=== PATIENT | male | born 2000 | race Caucasian/White ===

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

== ENCOUNTER 2021-08-15 15:03 | Outpatient (CLI) | payer MEDICAID, SELFPAY ==
[2021-08-15 16:39] LABS: Basophils # 0.1 10^3/uL (0.0-0.1); Basophils % 0.3 %; Eosinophils # 0.1 10^3/uL (0.0-0.8); Eosinophils % 0.9 %; Hematocrit 47.6 % (42.0-52.0); Hemoglobin 15.8 g/dL (11.7-16.6); Lymphocytes # 2.1 10^3/uL (1.5-6.5); Lymphocytes % 14.4 %; Mean Corpuscular HGB Conc 33.2 g/dL (30.0-36.0); Mean Corpuscular Hemoglobin 29.5 pg (28.0-34.0); Mean Corpuscular Volume 88.8 fl (80-94); Mean Platelet Volume 9.8 fL (7.4-10.4); Monocytes # 0.9 10^3/uL (0.2-0.9); Neutrophils # 11.64 10^3/uL (1.8-8.0); Neutrophils % 78.1 %; Nucleated Red Blood Cells % 0 %; Platelet Count 314 10^3/cmm (130-400); Red Blood Count 5.36 10^6/uL (4.1-5.3); Red Cell Distribution Width 13.2 % (12.1-15.1); White Blood Count 14.9 10^3/uL (4.5-13.0)
[2021-08-15 17:15] LABS: Alanine Aminotransferase 7 U/L (0-41); Albumin Level 4.9 g/dL (3.5-5.2); Alkaline Phosphatase 141 IU/L (40-130); Anion Gap 17.5 (5-19); Aspartate Amino Transferase 16 U/L (0-40); Blood Urea Nitrogen 8 mg/dL (6-20); Carbon Dioxide 24 mmol/L (22-29); Chloride 101 mmol/L (98-107); Free T4 Free Thyroxine 1.21 ng/dL (0.82-1.77); Globulin 3.9 g/dL (1.3-4.6); Glomerular Filtration Rate 123.2 mL/min (90-130); Glucose 87 mg/dL (65-115); Osmolality Calculated 286 mOsm/kg (285-295); Potassium 3.5 mmol/L (3.5-5.1); Sodium 139 mmol/L (136-145); Thyroid Stimulating Hormone 1.29 uIU/mL (0.27-4.20); Total Bilirubin 0.9 mg/dL (0.15-1.2); Total Protein 8.8 g/dL (6.6-8.7)
[2021-08-15 17:19] LABS: Folate Level 11.2 ng/mL (4.5-32.2)
[2021-08-15 18:02] LABS: Ferritin 74 ng/mL (30-400); Iron 60 ug/dL (59-158); Percent Saturation 14.1 % (20-50); Total Iron Binding Capacity 424 mcg/dl; Unsaturated Iron Binding 364 ug/dL (112-347)
[2021-08-15 18:12] LABS: Vitamin B12 167 pg/mL (232-1245)
== END 2021-08-15 15:04 | disposition home or self-care (01) ==
PROVIDERS: PCP Nurse Practitioner Family; Visit Provider Nurse Practitioner Family
DX: R42 Dizziness and giddiness (principal); R53.83 Other fatigue
CPT/HCPCS: 36415; 80053; 82607; 82728; 82746; 83540; 83550; 84439; 84443; 85025; 86769

== ENCOUNTER 2023-10-31 21:34 | Emergency (ER) | payer MEDICAID, SELFPAY ==
--- NOTE | 2023-10-31 21:38 | ECG_ITS ---
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 [id number]
[2023-10-31 21:41] VITALS: BP 178/112; PULSE 99; RESP 16; TEMP 36.6; O2SAT 98
--- NOTE | 2023-10-31 21:48 | XRR_ITS ---
PROCEDURE INFORMATION: Exam: XR Chest Exam date and time: 10/31/2023 10:02 PM Age: 23 years old Clinical indication: Angina pectoris; Patient HX: Chest pain TECHNIQUE: Imaging protocol: Radiologic exam of the chest. Views: 1 view. COMPARISON: CT abdomen pelvis w con* [id number] 03/05/2017 7:03 PM FINDINGS: Lungs: Unremarkable. No consolidation. Pleural spaces: Unremarkable. No pleural effusion. No pneumothorax. Heart/Mediastinum: Unremarkable. No cardiomegaly. Bones/joints: Unremarkable. XR/XR chest 1V portable [id number] IMPRESSION: No acute findings.
--- NOTE | 2023-10-31 22:11 | ED_ITS ---
HPI - Chest Pain General: Chief Complaint: Chest Pain Stated Complaint: chest pain left arm Time Seen by Provider: 10/31/23 21:42 Source: patient Mode of arrival: ambulatory Limitations: no limitations History of Present Illness: Patient is a 23-year-old male with no known past medical history here along with family for evaluation of chest pain. Patient states approximately an hour ago while playing video games he developed left-sided chest heaviness and tingling that he states radiated into his left arm. He states at maximum intensity it reached a 7/10 and states it lasted for approximately 20 minutes. He states there was some associated shortness of breath. He states upon arrival to the ED pain has significantly improved and is now rating it at a 2/10. Also reporting improvement of shortness of breath. Again patient has no known past medical history. He denies drug use or alcohol use. He does vape daily. Denies cigarette smoking. No recent illness/URI-like symptoms. No recent coughing or vomiting prior to pain starting. Denies back or abdominal pain. MD complaint: chest pain Onset (ago): hour(s) Timing of current episode: other (improving) Prior episodes: No Onset: during rest Pain location: left chest Pain radiation: left arm Quality: heaviness and other (tingling) Relieving factors: nothing Exacerbating factors: nothing Associated symptoms: Reports dyspnea (improved now); Deny abdominal pain, fever(s), palpitations or syncope Treatment prior to arrival: none Risk Factors: Coronary artery disease risk factors: none Thoracic aortic dissection risk factors: none Review of Systems Const: Denies: fever(s), chills, body aches, fatigue or malaise Eyes: Denies: change in vision ENMT: Denies: throat pain or odynophagia Card: Reports: chest pain (improved now); Denies: palpitations, irregular heart rhythm, edema, swelling of feet/ankles, lightheadedness, syncope, pre-syncope, dyspnea on exertion, orthopnea, leg pain with exertion or acrocyanosis Resp: Reports: dyspnea (improved now); Denies: productive cough, non-productive cough, wheezing, stridor, pain on inspiration, change in phlegm color, hemoptysis or chest congestion GI: Denies: abdominal pain Musc: Denies: neck pain Neuro: Denies: headache(s) or dizziness PFSH ED PFSH: Social History Smoking and tobacco/nicotine status: current every day tobacco/nicotine user e- cigarettes and smokeless tobacco Physical Exam Const: COMMON NORMALS: no acute distress, patient oriented x3, no limitations, alert and well nourished GENERAL APPEARANCE: cooperative NUTRITIONAL RICHARD EARANCE: overweight ORIENTATION/CONSCIOUSNESS: Yes awake, Yes oriented to person, Yes oriented to place and Yes oriented to time Neck/C-Spine: COMMON NORMALS: full ROM, no lymphadenopathy and supple GENERAL: Yes normal visual inspection, No anterior neck swelling and No submandibular swelling OTHER: no subq crepitus appreciated Chest: COMMONS NORMALS: normal inspection of the chest and normal palpation of entire chest wall Resp: COMMON NORMALS: normal respiratory effort and clear to auscultation bilaterally AUSCULTATION: clear to auscultation bilaterally Cardio: COMMON NORMALS: regular rate and regular rhythm RATE: regular rate RHYTHM: regular rhythm GI: COMMON NORMALS: Normal to inspection, nondistended, normoactive bowel sounds present, Soft to palpation, non-tender, No hepatosplenomegaly present and no masses PALPATION: Yes Soft to palpation and Yes No hepatosplenomegaly present Extremity: COMMON NORMALS: normal to inspection, no clubbing, cyanosis or edema and no calf tenderness GENERAL: Yes normal exam except as noted Neuro: ASA COMA SCALE: document GCS findings Asa coma scale eye opening: Spontaneous [place] coma scale verbal response: Orientated Asa coma scale motor response: Obey commands Asa coma scale total score: 15 COMMON NORMALS: patient oriented x3, CN's II-XII intact bilaterally, moves all extremities, no focal motor deficits, no sensory deficits noted and gait normal SENSORIUM/ORIENTATION: Yes alert, Yes oriented to person, Yes oriented to place and Yes oriented to time Skin: COMMON NORMALS: no rashes or lesions noted GENERAL SKIN EXAM: no rashes or lesions noted Course Vital Signs: Vital signs: Vital Signs Temperature 97.8 F 10/31/23 21:41 Pulse Rate 86 10/31/23 22:14 Respiratory Rate 18 10/31/23 22:14 Blood Pressure 126/97 10/31/23 22:14 Pulse Oximetry 97 10/31/23 22:14 Oxygen Delivery Me thod Room Air 10/31/23 21:41 MDM - Chest Pain Medical Decision Making Patient appears in absolutely no acute distress. He was hypertensive upon arrival but this resolved without intervention. Patient states upon arrival to the ED his chest pain and shortness of breath are significantly improved. His EKG showing sinus tachycardia. At time of my assessment/reassessment heart rate is in the 80s/90s. CXR is normal. Based on history and physical exam I have no concern for ACS, aneurysm, dissection, pneumothorax, Boerhaave syndrome, or other emergent process for his chest pain. Return precautions discussed and were verbalized by patient/family. Medical Records I reviewed the patient's medical records. XR interpretation done by ED provider, pending radiology final review Discharge Plan Discharge Patient Disposition: Home Clinical Impression: Non-cardiac chest pain Condition: Stable Prescriptions: No Action No Known Home Medications ibuprofen 800 mg tablet 800 mg PO TID PRN (Reason: pain) Qty: 30 0RF Discharge Orders: Discharge ED (Routine); Ordered 10/31/23 Ordered By: Ami Ibarra Referrals: Monica Coffey FNP [Primary Care Provider] - Patient Instructions: Noncardiac Chest Pain (ED) Activity Restrictions/Additional Instructions: As we discussed you may continue to monitor symptoms at home. Return to the emergency department for worsening or severe chest pain that is constant/persistent, difficulty breathing, significant shortness of breath, fevers, lightheadedness/dizziness/passing out episodes, generally feeling worse or unwell, or any other concerns you may have. I hope you begin to feel better soon. Coding Level of Care Code ED [employer] Architect for Vania Naranjo
[2023-10-31 22:14] VITALS: BP 126/97; PULSE 86; RESP 18; O2SAT 97
== END 2023-10-31 22:42 | disposition home or self-care (01) ==
PROVIDERS: Emergency Provider Physician Assistant; PCP Nurse Practitioner Family
DX: R07.89 Other chest pain (principal); F17.290 Nicotine dependence, other tobacco product, uncomplicated
CPT/HCPCS: 71045; 93005; 99284